=== PATIENT | female | born 1955 | race Caucasian/White ===

== ENCOUNTER → 2016-05-01 | Outpatient (CLI) | payer MEDICARE, MEDICAID ==
[~2016-05-01] MED LIST: AMITRIPTYLINE H50 M1 PO; ASPIRIN 81M81 MG/TA2 PO; CANA300T PO; CIPRO 500MG TA500 MG PO; COLACE 100100 MG/CAP PO; CYMBALTA 60MG60 MG PO; FLEXERIL 1010 MG/TAB PO; GLUCOPHAGE1000 MG PO; HCTZ 25MG TAB25 MG PO; LEVEMIR FLEXPEN; LOVENOX 4040 MG/0.4 SQ; MIRALAX PA17 GM/Dose PO; MORPHINE 1515 MG/TAB PO; NEURONTIN800 MG/TAB PO; NOVOLOG 100U100 U/M1 SC; PERCOCET 325 MG1 TA2 PO; PRINIVIL2.5 MG PO; ROXICODONE 55 MG/TAB PO; VICTOZA6 MG/ML; ZOCOR 20MG20 MG PO
== END ==
LOC: ZCOL.LAB 09:12 → ZLAB.STJ 09:12
DX: N19 Unspecified kidney failure (principal)

== ENCOUNTER → 2016-05-04 | Outpatient (CLI) | payer MEDICARE | LOC: ZLAB.STJ 12:27 | DX: Z53.9 Procedure and treatment not carried out, unspecified reason (principal) ==

== ENCOUNTER → 2016-05-04 | Outpatient (CLI) | payer MEDICARE, MEDICAID | LOC: COL.RAD 13:36 | DX: M25.552 Pain in left hip (principal); M25.551 Pain in right hip; E11.41 Type 2 diabetes mellitus with diabetic mononeuropathy; M16.12 Unilateral primary osteoarthritis, left hip ==

== ENCOUNTER → 2016-08-20 | Outpatient (CLI) | payer MEDICARE, MEDICAID | LOC: ZCOL.LAB 14:53 | DX: E11.9 Type 2 diabetes mellitus without complications (principal) ==

== ENCOUNTER → 2016-08-30 | Outpatient (CLI) | payer MEDICARE, MEDICAID ==
[2016-08-30 12:39] LABS: BASO % 0.6 % (0.0-2.0); EOS # 0.3 (0.0-0.7); EOS % 4.4 % (0-4.0); GRAN # 3.8 (1.4-6.5); GRAN % 52.8 % (42.2-75.2); HEMATOCRIT 38.4 % (37.0-47.0); HEMOGLOBIN 12.5 g/dl (12.5-16.0); LYMPH # 2.5 (1.2-3.4); LYMPH % 33.9 % (20.0-51.0); MEAN CELL VOLUME 95 fl (80.0-100.0); MEAN CORPUSCULAR HEMOGLOBIN 31 pg (27.0-31.0); MEAN CORPUSCULAR HGB CONC 33 g/dl (33.0-37.0); MEAN PLATELET VOLUME 12.1 fl (7.4-10.4); MONO # 0.6 (0.1-0.6); MONO % 7.9 % (1.7-9.3); PLATELET COUNT 179 K/mm3 (130-400); RED BLOOD COUNT 4.04 M/mm3 (4.10-5.30); REDCELL DISTRIBUTION WIDTH-CV 12.7 % (11.5-14.5); WHITE BLOOD COUNT 7.3 K/mm3 (4.8-10.8)
[2016-08-30 13:03] LABS: CALCIUM 9.6 mg/dL (8.4-10.2); CREATININE, serum 0.74 mg/dL (0.52-1.25); POTASSIUM 4.5 mmol/L (3.4-5.0)
== END ==
LOC: ZLAB.STJ 10:37
PROVIDERS: Internal Medicine
DX: E78.5 Hyperlipidemia, unspecified (principal)

== ENCOUNTER → 2016-10-30 | Outpatient (REF) ==
[2016-10-30 09:31] LABS: PH 5 (5-8); SQUAMOUS EPITHELIAL None Seen /hpf; URINE APPEARANCE Clear; URINE BACTERIA None Seen /hpf; URINE BILIRUBIN Negative (NEGATIVE); URINE BLOOD Negative (NEGATIVE); URINE COLOR Straw; URINE GLUCOSE 1+ (NEGATIVE); URINE KETONE Negative (NEGATIVE); URINE RBC 0-2 /hpf; URINE UROBILINOGEN Negative (NEGATIVE); URINE WBC 0-2 /hpf
== END ==
LOC: ZLAB.STJ 09:17
PROVIDERS: Internal Medicine
DX: Z01.89 Encounter for other specified special examinations (principal)

== ENCOUNTER → 2017-02-08 | Outpatient (REF) ==
[2017-02-08 09:51] LABS: CALCIUM 9.5 mg/dL (8.4-10.2); CREATININE, serum 0.83 mg/dL (0.52-1.25); POTASSIUM 4.8 mmol/L (3.4-5.0)
== END ==
LOC: ZLAB.STJ 09:27
PROVIDERS: Internal Medicine
DX: Z01.89 Encounter for other specified special examinations (principal)

== ENCOUNTER → 2017-02-18 | Outpatient (CLI) | payer MEDICARE, MEDICAID ==
[2017-02-18 10:19] LABS: BASO % 0.4 % (0.0-2.0); EOS # 0.3 (0.0-0.7); EOS % 3.7 % (0-4.0); GRAN # 4.5 (1.4-6.5); GRAN % 58.3 % (42.2-75.2); LYMPH # 2.3 (1.2-3.4); LYMPH % 30.1 % (20.0-51.0); MEAN CELL VOLUME 96 fl (80.0-100.0); MEAN CORPUSCULAR HGB CONC 33 g/dl (33.0-37.0); MEAN PLATELET VOLUME 12.2 fl (7.4-10.4); MONO # 0.6 (0.1-0.6); MONO % 7.1 % (1.7-9.3); PLATELET COUNT 187 K/mm3 (130-400); RED BLOOD COUNT 3.79 M/mm3 (4.10-5.30); WHITE BLOOD COUNT 7.8 K/mm3 (4.8-10.8)
[2017-02-18 10:22] LABS: HEMATOCRIT 36.3 % (37.0-47.0); HEMOGLOBIN 11.9 g/dl (12.5-16.0); MEAN CORPUSCULAR HEMOGLOBIN 31 pg (27.0-31.0)
[2017-02-18 10:32] LABS: ADJUSTED CALCIUM 9.7 mg/dL (8.4-10.2); ALBUMIN 3.9 gm/dL (3.5-5.0); BILIRUBIN,TOTAL 0.4 mg/dL (0.0-1.0); CALCIUM 9.6 mg/dL (8.4-10.2); CHOLESTEROL RISK RATIO 4.4; CREATININE, serum 0.84 mg/dL (0.52-1.25); POTASSIUM 4.6 mmol/L (3.4-5.0); TOTAL PROTEIN 6.9 gm/dL (6.4-8.2)
== END ==
LOC: ZLAB.STJ 10:10
PROVIDERS: Internal Medicine
DX: E78.2 Mixed hyperlipidemia (principal); I10 Essential (primary) hypertension; E11.69 Type 2 diabetes mellitus with other specified complication

== ENCOUNTER → 2017-09-13 | Outpatient (CLI) | payer MEDICARE, MEDICAID ==
[2017-09-13 10:12] LABS: CALCIUM 9.8 mg/dL (8.4-10.2); CREATININE, serum 0.88 mg/dL (0.52-1.25); POTASSIUM 4.7 mmol/L (3.4-5.0)
[2017-09-13 10:43] LABS: THYROID STIMULATING HORMONE 2.72 uIU/mL (0.465-4.680)
== END ==
LOC: ZLAB.STJ 09:51
PROVIDERS: Internal Medicine
DX: R73.09 Other abnormal glucose (principal); R94.6 Abnormal results of thyroid function studies

== ENCOUNTER → 2017-11-13 | Outpatient (CLI) | payer MEDICARE, MEDICAID | LOC: COL.RAD 11:29 | DX: M48.56XA Collapsed vertebra, not elsewhere classified, lumbar region, initial encounter for fracture (principal); M47.816 Spondylosis without myelopathy or radiculopathy, lumbar region; Z91.81 History of falling ==

== ENCOUNTER → 2018-02-26 | Outpatient (CLI) | payer MEDICARE, MEDICAID ==
[2018-02-26 12:46] LABS: ALBUMIN 3.4 gm/dL (3.5-5.0); BILIRUBIN,TOTAL 0.2 mg/dL (0.0-1.0); CALCIUM 9.6 mg/dL (8.4-10.2); CHOLESTEROL RISK RATIO 3.4; CREATININE, serum 0.91 mg/dL (0.52-1.25); POTASSIUM 5.2 mmol/L (3.4-5.0); TOTAL PROTEIN 6.2 gm/dL (6.4-8.2)
[2018-02-26 13:16] LABS: THYROID STIMULATING HORMONE 1.89 uIU/mL (0.465-4.680)
== END ==
LOC: ZCOL.LAB 11:56
PROVIDERS: Internal Medicine
DX: I10 Essential (primary) hypertension (principal); E11.40 Type 2 diabetes mellitus with diabetic neuropathy, unspecified; E78.2 Mixed hyperlipidemia

== ENCOUNTER 2018-06-17 17:20 | Emergency (ER) | payer MEDICARE, MEDICAID ==
[~2018-06-17] VITALS: Ht 167.6 cm; Wt 109.1 kg
[2018-06-17 17:30] VITALS: BP 124/70; TEMP 98.8
[2018-06-17 18:00] LABS: BASO % 0.4 % (0.0-2.0); EOS # 0.3 (0.0-0.7); EOS % 3.6 % (0-4.0); GRAN # 5.4 (1.4-6.5); GRAN % 65.1 % (42.2-75.2); HEMATOCRIT 38.8 % (37.0-47.0); HEMOGLOBIN 12.6 g/dl (12.5-16.0); LYMPH # 1.8 (1.2-3.4); MEAN CELL VOLUME 96 fl (80.0-100.0); MEAN CORPUSCULAR HEMOGLOBIN 31 pg (27.0-31.0); MEAN CORPUSCULAR HGB CONC 33 g/dl (33.0-37.0); MONO # 0.7 (0.1-0.6); MONO % 8.5 % (1.7-9.3); PLATELET COUNT 183 K/mm3 (130-400); RED BLOOD COUNT 4.05 M/mm3 (4.10-5.30); REDCELL DISTRIBUTION WIDTH-CV 12.7 % (11.5-14.5)
[2018-06-17 18:21] LABS: BILIRUBIN,TOTAL 0.3 mg/dL (0.0-1.0); CALCIUM 9.8 mg/dL (8.4-10.2); CREATININE, serum 1.06 mg/dL (0.52-1.25); POTASSIUM 4.2 mmol/L (3.4-5.0); TOTAL PROTEIN 7.4 gm/dL (6.4-8.2)
[2018-06-17 19:05] VITALS: PULSE 71
== END 2018-06-17 19:05 | disposition home or self-care (01) ==
LOC: COL.ER 17:20
PROVIDERS: Family Medicine
DX: S40.012A Contusion of left shoulder, initial encounter (principal); E11.9 Type 2 diabetes mellitus without complications; I10 Essential (primary) hypertension; F32.9 Major depressive disorder, single episode, unspecified; W07.XXXA Fall from chair, initial encounter; Y92.009 Unspecified place in unspecified non-institutional (private) residence as the place of occurrence of the external cause